=== PATIENT | male | born 1980 | race African-American/Black ===

== ENCOUNTER 2019-04-26 09:24 | Emergency (ER) | payer BC ==
[~2019-04-26] VITALS: Ht 180.3 cm; Wt 72.6 kg
[2019-04-26 09:37] VITALS: BP 120/68
[2019-04-26] MEDS ORDERED: ORPH100T PO (10:12)
[2019-04-26] MEDS ORDERED: ACET-704 PO (10:12)
[2019-04-26] MEDS ORDERED: PRED20TA PO (10:12)
[2019-04-26] MEDS ORDERED: LIDO1ADH63 TP (10:12)
--- NOTE | 2019-04-26 10:12 | PHYS DOC ---
Past Medical History Past Medical History: No Pertinent History Past Surgical History: No Surgical History, Other Additional Past Surgical Histo: DENTAL Alcohol Use: Rarely Drug Use: None Adult General Chief Complaint Chief Complaint: BACK PAIN - NO INJURY HPI HPI Patient is a 38 year old with no significant PMH who presents with back pain. His back pain is in the lumbar region, sharp, rates it 10/10 amd radiates to the left lower leg. Pt took some ibuprofen with minimal relieve. Pt reports having back pain started yesterday morning while he was vomiting in the bathroom. 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 Denies any fever, chill, saddle anesthesia, urinary or bowel incontinence. A year ago he had similar symptoms and was told to have muscle spasm in the upper back. Review of Systems Review of Systems Constitutional: Denies fever or chills Eyes: Denies redness or eye pain HENT: Denies nasal congestion or sore throat Respiratory: Denies cough or shortness of breath Cardiovascular: Denies chest pain or palpitations GI: Denies abdominal pain, nausea, or vomiting : Denies dysuria or hematuria Musculoskeletal: Positive back pain or joint pain Integument: Denies rash or skin lesions Neurologic: Denies headache, focal weakness or sensory changes Complete systems were reviewed and found to be within normal limits, except as documented in this note. Current Medications Current Medications Current Medications Medications (Trade) Dose Ordered Sig/Grant Start Time Stop Time Status Last Admin Dose Admin Dexamethasone (Decadron) 10 mg 1X ONCE 04/26/19 10:15 04/26/19 10:16 Ketorolac Tromethamine (Toradol 30mg Vial) 30 mg 1X ONCE 04/26/19 10:15 04/26/19 10:16 Lidocaine (Lidoderm) 1 patch 1X ONCE 04/26/19 10:15 04/26/19 10:16 Orphenadrine Citrate (Norflex) 60 mg 1X ONCE 04/26/19 10:15 04/26/19 10:16 Allergies Allergies Allergies Coded Allergies Type Severity Reaction Last Updated Verified No Known Drug Allergies 04/26/19 No Physical Exam Physical Exam Constitutional: Well developed, well nourished, no acute distress, non-toxic appearance HENT: Normocephalic, atraumatic, oropharynx moist Eyes: PERRL, EOMI, conjunctiva normal, no discharge Neck: Normal range of motion, no tenderness, supple Cardiovascular: Heart rate normal, regular rhythm Lungs & Thorax: Bilateral breath sounds clear to auscultation, no wheezing Abdomen: Soft, no tenderness Skin: Warm, dry, no erythema, no rash Back: L1-2 midline and paraspinal tenderness, no CVA tenderness Extremities: No tenderness, ROM intact, no edema Neurologic: Alert and oriented X 3, normal motor function, normal sensory function, no focal deficits noted Psychologic: Affect normal, judgement normal, mood normal Current Patient Data Vital Signs Vital Signs Date Time Temp Pulse Resp B/P (MAP) Pulse Ox O2 Delivery O2 Flow Rate FiO2 04/26/19 09:37 97.8 55 20 120/68 (85) 99 Room Air 97.8 EKG EKG [] Radiology/Procedures Radiology/Procedures [] Course & Med Decision Making Course & Med Decision Making Pertinent Labs and Imaging studies reviewed. (See chart for details) Patient is a 38 year old with no significant PMH who presents with back pain. DDx: sciatica from herniated disc, paraspinal muscle sprain and strain, doubt cauda equina syndrome, fracture, infectious etiologies with HPI and PE. Will provide pain control and follow up with pain management. Pt is stable, will reassess. Dispo: will discharge with return precaution. Dragon Disclaimer Dragon Disclaimer This electronic medical record was generated, in whole or in part, using a voice recognition dictation system. Departure Departure Impression: Primary Impression: Back pain Additional Impression: Sciatic leg pain Disposition: HOME, SELF-CARE Condition: STABLE Referrals: NO PCP (PCP) ALEXANDER GUSMAN MD Patient Instructions: Back Pain, Adult, Sciatica, [id number] Scripts Prednisone (PREDNISONE) 20 Mg Tablet 2 TAB PO DAILY, #8 TAB Start this medication tomorrow Friday 04/27. Prov: DAVID BRIONES DO 04/26/19 Lidocaine (Lidocaine) 1 Each Adh..patch 1 EACH TP Q12HR PRN for PAIN, #10 PATCH Maintain patch for 12hrs then remove and leave off for next 12 hrs before applying new patch. Prov: DAVID BRIONES DO 04/26/19 Orphenadrine Citrate (ORPHENADRINE CITRATE) 100 Mg Tablet.er 100 MG PO BID PRN for MUSCLE PAIN, #14 TAB Prov: DAVID BRIONES DO 04/26/19 Acetaminophen With Codeine (TYLENOL WITH CODEINE #3 TABLET) 1 Each Tablet 1 TAB PO PRN Q6HRS PRN for pain MDD 4 Tablet(s), #10 TAB 0 Refills Prov: DAVID BRIONES DO 04/26/19 Problem Qualifiers DAVID BRIONES DO Apr 26, 2019 10:12
[2019-04-26] MEDS ORDERED: ORPHENADRINE CITRATE 60 MG/2 ML VIAL. IM ONE (10:15)
[2019-04-26] MEDS ORDERED: DEXAMETHASONE 4 MG TABLET PO ONE (10:15)
[2019-04-26] MEDS ORDERED: KETOROLAC 30 MG/ML VIAL. IM ONE (10:15)
[2019-04-26] MEDS ORDERED: LIDOCAINE (700MG/PATCH) PATCH. TD ONE (10:15)
== END 2019-04-26 10:32 | disposition home or self-care (01) ==
LOC: ER 09:24
DX: M54.5 Low back pain (principal); M54.32 Sciatica, left side; Z98.890 Other specified postprocedural states
CPT/HCPCS: 96372; 99284; J1885; J2360; J8540